=== PATIENT | male | born 1960 | race Caucasian/White ===

== ENCOUNTER → 2020-08-14 | Outpatient (CLI) | payer OTHER ==
[~2020-08-14] MED LIST: AUGMENTIN 875 M1 TAB PO; DEXILANT60 M1 PO; KEFLEX500 MG PO; VICODIN 500 MG-1 TAB PO; VICODIN ES 7501 TAB PO
== END | disposition home or self-care (01) ==
LOC: LAB 07:20
PROVIDERS: ATTEND Ophthalmology
DX: H53.2 Diplopia (principal); H02.409 Unspecified ptosis of unspecified eyelid

== ENCOUNTER → 2020-09-12 | Outpatient (CLI) | payer OTHER ==
[2020-09-12 07:55] LABS: BASO % 0.8 % (0.0-1.0); EOS # 0.1 10*3/uL (0.0-0.4); EOS % 1.6 % (1.0-4.0); HEMATOCRIT 47.5 % (42.0-52.0); LYMPH # 1.1 10*3/uL (1.3-4.4); LYMPH % 29.5 % (27.0-41.0); MEAN CELL VOLUME 91.7 fl (80.0-94.0); MEAN CORPUSCULAR HGB 30.9 pg (27.0-31.0); MEAN CORPUSCULAR HGB CONC 33.7 g/dl (33.0-37.0); MEAN PLATELET VOLUME 9.3 fl (9.6-12.3); MONO # 0.3 10*3/uL (0.1-1.0); MONO % 7.4 % (3.0-9.0); NEUT # 2.3 10*3/uL (2.3-7.9); NEUT % 60.4 % (47.0-73.0); PLATELET COUNT AUTOMATED 242 10*3/uL (130-400); RED BLOOD COUNT 5.18 10*6/uL (4.50-5.90); RED CELL DISTRI WIDTH 13.3 % (0-14.5); WHITE BLOOD COUNT 3.8 10*3/uL (4.8-10.8)
[2020-09-12 08:23] LABS: ALBUMIN 3.8 gm/dl (3.1-4.5); ALKALINE PHOSPHATASE 86 U/L (45-117); BUN 13 mg/dl (7-24); CHLORIDE 107 mmol/L (98-107); CREATININE 1.18 mg/dL (0.70-1.30); FREE T4 0.92 ng/dl (0.76-1.46); POTASSIUM 3.9 mmol/L (3.5-5.1); SGOT/AST 13 IU/L (3-35); SGPT/ALT 29 U/L (12-78); SODIUM 140 mmol/L (136-145); TOTAL PROTEIN 7.8 gm/dL (6.4-8.2)
[2020-09-13 06:07] LABS: RHEUMATOID ARTHRITIS FACTOR <10.0 IU/mL (0.0-13.9); THYROID PEROXIDASE (TPO) AB <9 IU/mL (0-34)
[2020-09-15 16:07] LABS: THYROGLOBULIN ANTIBODY <1.0 IU/mL (0.0-0.9)
== END | disposition home or self-care (01) ==
LOC: LAB 07:30
PROVIDERS: ATTEND Psychiatry & Neurology Neurology
DX: G70.00 Myasthenia gravis without (acute) exacerbation (principal); Z86.2 Personal history of diseases of the blood and blood-forming organs and certain disorders involving the immune mechanism; Z82.61 Family history of arthritis

== ENCOUNTER → 2021-05-13 | Outpatient (CLI) | payer OTHER | END | disposition home or self-care (01) | LOC: LAB 08:54 | PROVIDERS: ATTEND Psychiatry & Neurology Neurology | DX: G70.01 Myasthenia gravis with (acute) exacerbation (principal) ==

== ENCOUNTER → 2022-06-14 | Outpatient (CLI) | payer OTHER | END | disposition home or self-care (01) | LOC: RAD 08:03 | PROVIDERS: ATTEND Orthopaedic Surgery | DX: R93.89 Abnormal findings on diagnostic imaging of other specified body structures (principal) ==